=== PATIENT | male | born 1965 | race Caucasian/White ===

== ENCOUNTER 2016-12-05 17:53 | Emergency (ER) | payer BC ==
[~2016-12-05] VITALS: Ht 165.1 cm; Wt 81.6 kg
[2016-12-05 18:08] VITALS: BP 170/95
[2016-12-05] MEDS ORDERED: LIDOCAINE 1% / SOD BICARB 8.4% 20 ML VIAL. IJ ONE (19:00)
[2016-12-05] MEDS ORDERED: HYDROCODONE/APAP 5/325MG TABLET. PO ONE (19:00)
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
== END 2016-12-05 19:57 | disposition home or self-care (01) ==
LOC: ER 17:53
DX: S01.81XA Laceration without foreign body of other part of head, initial encounter (principal); S09.90XA Unspecified injury of head, initial encounter; M19.90 Unspecified osteoarthritis, unspecified site; R68.84 Jaw pain; K21.9 Gastro-esophageal reflux disease without esophagitis; I10 Essential (primary) hypertension; V47.5XXA Car driver injured in collision with fixed or stationary object in traffic accident, initial encounter; Y93.89 Activity, other specified; Y92.89 Other specified places as the place of occurrence of the external cause; Y99.8 Other external cause status
CPT/HCPCS: 12013; 70450; 70486; 99284-25